=== PATIENT | female | born 1960 | race Caucasian/White ===

== ENCOUNTER 2019-06-07 08:15 | Inpatient (IN) | payer OTHER ==
[~2019-06-07] VITALS: Ht 160 cm; Wt 92.5 kg
[2019-06-07] MEDS ORDERED: TYLENOL ARTHRI650 MG PO (09:56)
[2019-06-07] MEDS ORDERED: ADVIL PO (09:57)
[2019-06-07] MEDS ORDERED: ALEVE PO (09:57)
[2019-06-07] MEDS ORDERED: ETODOLAC PO (09:58)
[2019-06-07] MEDS ORDERED: NORFL PO (09:59)
[2019-06-07] MEDS ORDERED: RELA PO (09:59)
[2019-06-07] MEDS ORDERED: TRAMADOL HCL50 MG PO (10:00)
[2019-06-07] MEDS ORDERED: RELAFEN PO (10:00)
[2019-06-07] MEDS ORDERED: SYNTHROID50 MCG PO (10:01)
[2019-06-07] MEDS ORDERED: RANITIDINE HCL150 M1 PO (10:01)
[2019-06-07] MEDS ORDERED: [UNRECOGNIZED DRUG - REMARK] PO (10:03)
[2019-06-12] MEDS ORDERED: ADVIL100 MG (10:02)
[2019-06-12] MEDS ORDERED: ALEVE220 MG (10:05)
[2019-06-12] MEDS ORDERED: NABUMETONE750 MG (10:07)
[2019-06-12] MEDS ORDERED: CEFUROXIME500 MG PO (10:10)
[2019-06-12] MEDS ORDERED: NORFLEX100MG (10:11)
[2019-06-14] MEDS ORDERED: PERCOCET 5-3251 EACH PO (14:02)
[2019-06-14] MEDS ORDERED: ELIQUIS2.5 MG PO (14:02)
[2019-06-14] MEDS ORDERED: DUI500 PO (14:02)
== END 2019-06-14 16:47 | DRG 470 ==
LOC: EDSTATUS 08:15 → ADM 08:15 → O/R 06-12 06:05 → SURG 06-12 06:05 → SURH 06-12 08:15 → SURG 06-12 15:47
PROVIDERS: ADMIT Orthopaedic Surgery
PROC: 0MNN0ZZ Release Right Knee Bursa and Ligament, Open Approach (ICD-10-PCS; 2019-06-12)
PROC: 0SRC0J9 Replacement of Right Knee Joint with Synthetic Substitute, Cemented, Open Approach (ICD-10-PCS; principal; 2019-06-12 09:45)
DX: M17.11 Unilateral primary osteoarthritis, right knee (principal); M80.00XA Age-related osteoporosis with current pathological fracture, unspecified site, initial encounter for fracture; D62 Acute posthemorrhagic anemia; E66.01 Morbid (severe) obesity due to excess calories; M22.11 Recurrent subluxation of patella, right knee; I87.2 Venous insufficiency (chronic) (peripheral); I10 Essential (primary) hypertension; E03.8 Other specified hypothyroidism; Z96.651 Presence of right artificial knee joint

== ENCOUNTER 2020-08-26 08:43 | Outpatient (CLI) | payer OTHER ==
[~2020-08-26 08:43] MED LIST: ADVIL PO; ADVIL100 MG; ALEVE PO; ALEVE220 MG; CEFUROXIME500 MG PO; DUI500 PO; ELIQUIS2.5 MG PO; ETODOLAC PO; NABUMETONE750 MG; NORFL PO; NORFLEX100MG; PERCOCET 5-3251 EACH PO; RANITIDINE HCL150 M1 PO; RELA PO; RELAFEN PO; SYNTHROID50 MCG PO; TRAMADOL HCL50 MG PO; TYLENOL ARTHRI650 MG PO; [UNRECOGNIZED DRUG - REMARK] PO
== END 2020-08-26 08:53 | disposition home or self-care (01) ==
LOC: RX STUDY 08:43
PROVIDERS: ATTEND Internal Medicine Gastroenterology
DX: K44.9 Diaphragmatic hernia without obstruction or gangrene (principal); R10.13 Epigastric pain

== ENCOUNTER 2022-04-02 07:15 | Inpatient (IN) | payer OTHER ==
[~2022-04-02] VITALS: Ht 160 cm; Wt 90.7 kg
[2022-04-02] MEDS ORDERED: SYNTHROID75 MCG PO (09:45)
[2022-04-02] MEDS ORDERED: CATAFLAN PO (09:46)
[2022-04-02] MEDS ORDERED: RELAFE PO (09:46)
[2022-04-02] MEDS ORDERED: MELATONIN10 MG PO (09:47)
[2022-04-02] MEDS ORDERED: CLONAZEPAM0.5 MG PO (09:48)
[2022-04-02] MEDS ORDERED: CANABIS PO (09:49)
[2022-04-06] MEDS ORDERED: DICLOFENAC POTA25 MG PO (11:38)
[2022-04-08] MEDS ORDERED: PERCOCET 5-3251 EACH PO (14:58)
[2022-04-08] MEDS ORDERED: DUI500 PO (14:58)
[2022-04-08] MEDS ORDERED: ELIQUIS2.5 MG PO (14:58)
== END 2022-04-08 21:54 | DRG 470 ==
LOC: SURH 07:15 → SURG 04-06 07:00 → O/R 04-06 07:00 → SURH 04-06 07:15 → SURG 04-06 14:16 → SURH 04-06 16:45 → SURG 04-08 21:54
PROVIDERS: ADMIT Orthopaedic Surgery; ATTEND Orthopaedic Surgery
PROC: 0SRD0J9 Replacement of Left Knee Joint with Synthetic Substitute, Cemented, Open Approach (ICD-10-PCS; principal; 2022-04-06 16:45)
DX: M17.12 Unilateral primary osteoarthritis, left knee (principal); D62 Acute posthemorrhagic anemia; M81.0 Age-related osteoporosis without current pathological fracture; M22.12 Recurrent subluxation of patella, left knee; E66.01 Morbid (severe) obesity due to excess calories; E03.8 Other specified hypothyroidism; Z20.822 Contact with and (suspected) exposure to COVID-19

== ENCOUNTER 2023-05-09 16:17 | Emergency (ER) | payer OTHER ==
[~2023-05-09] VITALS: Ht 160 cm; Wt 122.5 kg
[~2023-05-09 16:17] MED LIST changes: +CANABIS PO; +CATAFLAN PO; +CLONAZEPAM0.5 MG PO; +DICLOFENAC POTA25 MG PO; +MELATONIN10 MG PO; +RELAFE PO; +SYNTHROID75 MCG PO
[2023-05-09] MEDS ORDERED: [UNRECOGNIZED DRUG - OTHER] (17:24)
[2023-05-09] MEDS ORDERED: LIPITOR20 MG PO (17:24)
[2023-05-09] MEDS ORDERED: TAMS0.4C PO (21:24)
[2023-05-09] MEDS ORDERED: CIPRO500 MG PO (21:24)
[2023-05-09] MEDS ORDERED: KETO10TA2 PO (21:26)
== END 2023-05-09 21:37 | disposition home or self-care (01) ==
LOC: ER 16:17
DX: N20.1 Calculus of ureter (principal); R10.9 Unspecified abdominal pain; N20.0 Calculus of kidney